=== PATIENT | male | born 1980 | race Hispanic/Latino ===

== ENCOUNTER 2019-09-12 20:26 | Emergency (ER) | payer SELFPAY ==
[2019-09-12 22:30] VITALS: BP 133/77
== END 2019-09-12 22:30 | disposition home or self-care (01) | DRG 605 ==
LOC: ED 20:26
DX: S30.0XXA Contusion of lower back and pelvis, initial encounter (principal); S70.212A Abrasion, left hip, initial encounter; F17.210 Nicotine dependence, cigarettes, uncomplicated; W10.9XXA Fall (on) (from) unspecified stairs and steps, initial encounter; Y92.009 Unspecified place in unspecified non-institutional (private) residence as the place of occurrence of the external cause